=== PATIENT | female | born 1975 | race Caucasian/White ===

== ENCOUNTER → 2016-10-15 | Outpatient (CLI) | payer OTHER ==
[~2016-10-15] MED LIST: ALPR1TAB PO; DESV100T PO; DEXA4TAB PO; DIVA250T4 PO; FAMO-79 PO; METH5TAB2 PO; NORT25CA PO; ONDA8TAB9 PO; OXYC-302 PO; PREG50CA PO; VILA10TA PO; [UNRECOGNIZED DRUG - OTHER] IV
== END | disposition home or self-care (01) ==
LOC: CFH 12:35
PROVIDERS: ATTEND Internal Medicine Hematology & Oncology
DX: C50.912 Malignant neoplasm of unspecified site of left female breast (principal)
CPT/HCPCS: G0204

== ENCOUNTER 2018-04-16 14:47 | Emergency (ER) | payer OTHER ==
[~2018-04-16] VITALS: Ht 160 cm; Wt 58.9 kg
[2018-04-16 15:01] VITALS: BP 125/85
[2018-04-16 15:40] LABS: BASOPHILS # (AUTO) 0.05 x10^3/uL (0-0.1); BASOPHILS % (AUTO) 1 % (0-1); EOSINOPHILS # (AUTO) 0.08 x10^3/uL (0-0.4); EOSINOPHILS % (AUTO) 1 % (1-7); LYMPHOCYTES # (AUTO) 2.65 x10^3/uL (1-3.4); LYMPHOCYTES % (AUTO) 31 % (22-44); MD NO; MEAN CORPUSCULAR HEMOGLOBIN 32.6 pg (27.0-34.8); MEAN CORPUSCULAR HGB CONC 33.7 g/dL (32.4-35.8); MEAN CORPUSCULAR VOLUME 96.8 fL (80-100); MEAN PLATELET VOLUME 8.7 fL (7.4-10.4); MONOCYTES # (AUTO) 0.28 x10^3/uL (0.2-0.8); MONOCYTES % (AUTO) 3 % (2-9); NEUTROPHILS % (AUTO) 64 % (42-75); PLATELET COUNT 206 x10^3/uL (130-400); RED BLOOD COUNT 4.95 x10^6/uL (3.82-5.3); RED CELL DISTRIBUTION WIDTH 12.6 % (9.6-15.2)
[2018-04-16 15:54] LABS: ALBUMIN 3.8 g/dL (3.4-5.0); ANION GAP 6 mmol/L (5-15); CALCIUM 8.6 mg/dL (8.5-10.1); CHLORIDE 106 mmol/L (98-107)
[2018-04-16 15:58] LABS: ALANINE AMINOTRANSFERASE 50 U/L (12-78); ALKALINE PHOSPHATASE 72 U/L (45-117); BILIRUBIN,TOTAL 0.3 mg/dL (0.2-1.0); TOTAL PROTEIN 7.4 g/dL (6.4-8.2)
[2018-04-16] MEDS ORDERED: MAALOX/HYOSCYAMINE/LIDOCAINE 45 ML BTL ONE (17:10)
[2018-04-16 17:13] LABS: CULTURE INDICATED? YES; MICROSCOPIC INDICATED
[2018-04-16] MEDS ORDERED: MAALOX/HYOSCYAMINE/LIDOCAINE 45 ML BTL PO ONE (17:30)
== END 2018-04-16 17:54 | disposition left against medical advice (07) ==
LOC: ED 17:48
DX: K80.20 Calculus of gallbladder without cholecystitis without obstruction (principal); F32.9 Major depressive disorder, single episode, unspecified; Z85.3 Personal history of malignant neoplasm of breast
CPT/HCPCS: 36415; 76700; 80053; 81001; 83690; 85025; 87077; 87086; 87186; 99285

== ENCOUNTER 2021-02-10 13:18 | Inpatient (IN) | payer OTHER ==
[~2021-02-10] VITALS: Ht 162.6 cm; Wt 75.0 kg
[~2021-02-10 13:18] MED LIST changes: -NORT25CA PO; +NORT25CA78 PO; -OXYC-302 PO; +OXYC1TAB14 PO
[2021-02-10 14:31] LABS: BASOPHILS % (AUTO) 1 % (0-1); EOSINOPHILS % (AUTO) 4 % (1-7); LYMPHOCYTES % (AUTO) 22 % (22-44); MEAN CORPUSCULAR HEMOGLOBIN 32.1 pg (27.0-34.8); MEAN PLATELET VOLUME 8.9 fL (7.4-10.4); MONOCYTES % (AUTO) 9 % (2-9); NEUTROPHILS % (AUTO) 63 % (42-75); PLATELET COUNT 177 x10^3/uL (130-400); RED BLOOD COUNT 4.43 x10^6/uL (3.82-5.3); RED CELL DISTRIBUTION WIDTH 12.8 % (9.6-15.2)
[2021-02-10 14:42] LABS: ALBUMIN 3.3 g/dL (3.4-5.0); ANION GAP 8 mmol/L (5-15); CALCIUM 9.2 mg/dL (8.5-10.1); CHLORIDE 103 mmol/L (98-107)
[2021-02-10 14:48] LABS: ALANINE AMINOTRANSFERASE 298 U/L (12-78); ALKALINE PHOSPHATASE 505 U/L (45-117); BILIRUBIN,TOTAL 1.1 mg/dL (0.2-1.0); CREATININE 0.83 mg/dL (0.55-1.02); TOTAL PROTEIN 7.2 g/dL (6.4-8.2)
--- NOTE | 2021-02-10 17:21 | NUR ---
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
--- NOTE | 2021-02-10 17:40 | NUR ---
RIGHT UPPER ABD PAIN RADIATING TO BACK x 3 days no etoh use, still has gallbladder
[2021-02-10] MEDS ORDERED: SODIUM CHLORIDE 0.9% 1,000 ML IV ONE (18:00)
[2021-02-10] MEDS ORDERED: MORPHINE SULFATE 4 MG/ML, 1ML IVPush PRN (18:00)
[2021-02-10] MEDS ORDERED: SODIUM CHLORIDE FLUSH 10ML SYR IVF ONE (18:00)
[2021-02-10] MEDS ORDERED: ONDANSETRON 2MG/ML, 2ML IVPush ONE (18:00)
--- NOTE | 2021-02-10 18:50 | NUR ---
RECIEVED REPORT FROM SERGIO COLBERT
[2021-02-10] MEDS ORDERED: MORPHINE SULFATE 4 MG/ML, 1ML ONE (18:55)
[2021-02-10] MEDS ORDERED: ONDANSETRON 2MG/ML, 2ML ONE (18:55)
--- NOTE | 2021-02-10 19:00 | NUR ---
report to cristine melchor
[2021-02-10] MEDS ORDERED: MELATONIN 5 MG TABLET PO PRN (19:30)
[2021-02-10] MEDS ORDERED: ONDANSETRON 2MG/ML, 2ML IVPush PRN (19:30)
[2021-02-10] MEDS ORDERED: HYDROmorphone 2 MG/ML, 1ML IVPush PRN (19:30)
[2021-02-10] MEDS ORDERED: ACETAMINOPHEN 325 MG TABLET PO PRN (19:30)
[2021-02-10] MEDS ORDERED: LABETALOL 5MG/ML, 20ML IVPush PRN (19:30)
[2021-02-10] MEDS ORDERED: POLYETHYLENE GLYCOL 17 GM PACKET PO PRN (19:30)
--- NOTE | 2021-02-10 20:00 | NUR ---
Task RN: IV established. Medicated patient per mar. Patient to MRI. Primary RN aware.
--- NOTE | 2021-02-10 20:45 | NUR ---
Pt to be admitted to medical, room 375. Report called to will.
[2021-02-10 21:16] VITALS: BP 106/69
[2021-02-10] MEDS: FAMOTIDINE 20 MG/2 ML IVPush SCH (22:04)
[2021-02-10] MEDS: KETOROLAC 30 MG/1 ML IV PRN (22:12)
[2021-02-11 00:40] VITALS: BP 105/69
[2021-02-11 05:13] LABS: MICROSCOPIC INDICATED
[2021-02-11 05:50] LABS: BASOPHILS % (AUTO) 1 % (0-1); EOSINOPHILS % (AUTO) 5 % (1-7); LYMPHOCYTES % (AUTO) 18 % (22-44); MEAN CORPUSCULAR HEMOGLOBIN 32.6 pg (27.0-34.8); MEAN CORPUSCULAR HGB CONC 34.5 g/dL (32.4-35.8); MEAN PLATELET VOLUME 8.8 fL (7.4-10.4); MONOCYTES % (AUTO) 10 % (2-9); NEUTROPHILS % (AUTO) 66 % (42-75); PLATELET COUNT 160 x10^3/uL (130-400); RED BLOOD COUNT 4.42 x10^6/uL (3.82-5.3); RED CELL DISTRIBUTION WIDTH 13.2 % (9.6-15.2)
[2021-02-11 06:08] LABS: ALBUMIN 2.7 g/dL (3.4-5.0); ANION GAP 5 mmol/L (5-15); CALCIUM 8.9 mg/dL (8.5-10.1); CHLORIDE 105 mmol/L (98-107)
[2021-02-11 06:11] LABS: ALANINE AMINOTRANSFERASE 240 U/L (12-78); ALKALINE PHOSPHATASE 462 U/L (45-117); BILIRUBIN,TOTAL 1.2 mg/dL (0.2-1.0); CREATININE 0.73 mg/dL (0.55-1.02); TOTAL PROTEIN 6.6 g/dL (6.4-8.2)
[2021-02-11 06:59] VITALS: BP 110/74
[2021-02-11] MEDS: FAMOTIDINE 20 MG/2 ML IVPush SCH ×2 (07:27→20:47)
[2021-02-11] MEDS: KETOROLAC 30 MG/1 ML IV PRN (07:27)
[2021-02-11] MEDS: LACTATED RINGERS 1,000 ML IV SCH ×2 (12:06→20:56)
[2021-02-11 14:38] VITALS: BP 104/68
[2021-02-11 20:34] VITALS: BP 93/57
[2021-02-12 00:03] VITALS: BP 112/73
[2021-02-12] MEDS: LACTATED RINGERS 1,000 ML IV SCH ×3 (05:20→23:40)
[2021-02-12 06:33] LABS: BASOPHILS % (AUTO) 0 % (0-1); EOSINOPHILS % (AUTO) 6 % (1-7); LYMPHOCYTES % (AUTO) 28 % (22-44); MEAN CORPUSCULAR HEMOGLOBIN 32.3 pg (27.0-34.8); MEAN CORPUSCULAR HGB CONC 34.1 g/dL (32.4-35.8); MEAN PLATELET VOLUME 9.1 fL (7.4-10.4); MONOCYTES % (AUTO) 11 % (2-9); NEUTROPHILS % (AUTO) 55 % (42-75); PLATELET COUNT 170 x10^3/uL (130-400); RED BLOOD COUNT 4.37 x10^6/uL (3.82-5.3)
[2021-02-12 06:36] LABS: INTERNATIONAL NORMALIZED RATIO 1.02 (0.93-1.1); PROTHROMBIN TIME 10.9 Seconds (9.6-11.5)
[2021-02-12 06:38] LABS: ALBUMIN 2.6 g/dL (3.4-5.0); ANION GAP 6 mmol/L (5-15); CALCIUM 8.7 mg/dL (8.5-10.1); CHLORIDE 108 mmol/L (98-107)
[2021-02-12 06:43] LABS: ALANINE AMINOTRANSFERASE 168 U/L (12-78); ALKALINE PHOSPHATASE 476 U/L (45-117); CREATININE 0.66 mg/dL (0.55-1.02); TOTAL PROTEIN 6.1 g/dL (6.4-8.2)
[2021-02-12] MEDS: FAMOTIDINE 20 MG/2 ML IVPush SCH ×2 (08:31→22:16)
[2021-02-12 08:55] VITALS: BP 121/77
[2021-02-12] MEDS ORDERED: OMNIPAQUE 350 MG/ML, 50 ML BOTTLE ONE ×2 (09:42→10:45)
[2021-02-12] MEDS ORDERED: MIDAZOLAM 1 MG/ML, 2ML ONE (10:30)
[2021-02-12] MEDS ORDERED: FENTANYL PF 100 MCG/2ML ONE ×2 (10:45→18:54)
[2021-02-12] MEDS ORDERED: OXYcodone 5 MG/5 ML ORAL.SOL UDC PO PRN ×3 (11:00→19:00)
[2021-02-12] MEDS ORDERED: HYDROcodone/APAP 7.5-325MG/15ML UDC PO PRN (11:00)
[2021-02-12] MEDS ORDERED: HYDROmorphone 1 MG/ML, 1ML INJ IVPush PRN (11:00)
[2021-02-12] MEDS ORDERED: MEPERIDINE/PF 25MG/0.5ML IVPush PRN ×3 (11:00→19:00)
[2021-02-12] MEDS ORDERED: ONDANSETRON 2MG/ML, 2ML IVPush PRN ×2 (11:00→20:30)
[2021-02-12] MEDS ORDERED: KETOROLAC 30 MG/1 ML IVPush PRN (11:00)
[2021-02-12] MEDS ORDERED: PROMETHAZINE 25 MG/ML, 1ML IVPush PRN (11:00)
[2021-02-12] MEDS ORDERED: FENTANYL PF 100 MCG/2ML IV PRN ×3 (11:00→19:00)
[2021-02-12] MEDS ORDERED: INDOMETHACIN 50 MG SUPP.RECT PR STA (11:26)
[2021-02-12] MEDS ORDERED: CIPROFLOXACIN LACTATE 200 MG in DEXTROSE 5% 100 ML IV STA (11:27)
[2021-02-12] MEDS ORDERED: INDOMETHACIN 50 MG SUPP.RECT ONE (11:38)
[2021-02-12] MEDS ORDERED: CIPROFLOXACIN/DEXT 200MG PMX 100 ML IVPB ONE (12:00)
[2021-02-12] MEDS ORDERED: LACTATED RINGERS 1,000 ML IVBOLUS ONE (12:30)
[2021-02-12 13:04] VITALS: BP 125/86
[2021-02-12] MEDS: KETOROLAC 30 MG/1 ML IV PRN ×2 (15:45→22:17)
[2021-02-12] MEDS ORDERED: FENTANYL PF 250 MCG/5ML ONE (17:49)
[2021-02-12] MEDS ORDERED: HYDROmorphone 2 MG/ML, 1ML IVPush PRN ×2 (18:00→19:00)
[2021-02-12] MEDS ORDERED: ACETAMINOPHEN 325 MG TABLET PO PRN ×2 (18:00→19:00)
[2021-02-12] MEDS ORDERED: ALBUTEROL SULFATE 2.5 MG/3 ML NPPB PRN ×2 (18:00→19:00)
[2021-02-12] MEDS ORDERED: PROMETHAZINE 25 MG/ML, 1ML IV PRN ×2 (18:00→19:00)
[2021-02-12] MEDS ORDERED: LABETALOL 5MG/ML, 20ML IV PRN ×2 (18:00→19:00)
[2021-02-12] MEDS ORDERED: DIAZEPAM 5 MG/ML, 2ML IVPush PRN ×2 (18:00→19:00)
[2021-02-12] MEDS ORDERED: hydrALAzine 20 MG/ML, 1ML IV PRN ×2 (18:00→19:00)
[2021-02-12] MEDS ORDERED: KETOROLAC 30 MG/1 ML IV PRN (18:00)
[2021-02-12] MEDS ORDERED: BUPIVACAINE/PF-EPI 0.5% 1:200K INFIL ONE (18:13)
[2021-02-12] MEDS ORDERED: ROCURONIUM 10MG/ML,5ML ONE (18:38)
[2021-02-12] MEDS ORDERED: GLYCOPYRROLATE 0.2MG/1ML, 5ML ONE (18:38)
[2021-02-12] MEDS ORDERED: PROPOFOL 10 MG/ML, 20ML ONE (18:38)
[2021-02-12] MEDS ORDERED: ONDANSETRON 2MG/ML, 2ML ONE (18:38)
[2021-02-12] MEDS ORDERED: CEFAZOLIN 1,000 MG ONE (18:38)
[2021-02-12] MEDS ORDERED: SUCCINYLCHOLINE 20 MG/ML, 10ML ONE (18:38)
[2021-02-12] MEDS ORDERED: NEOSTIGMINE 1 MG/ML, 10ML ONE (18:38)
[2021-02-12] MEDS ORDERED: ACETAMINOPHEN 650 MG/20.3 ML UDC ONE (18:54)
[2021-02-12] MEDS ORDERED: OXYcodone 5 MG/5 ML ORAL.SOL UDC ONE (18:55)
[2021-02-12 19:40] VITALS: BP 112/56
[2021-02-12 19:49] VITALS: BP 112/56
[2021-02-12] MEDS ORDERED: OXYcodone/APAP 5/325MG TABLET PO PRN (20:30)
[2021-02-13 00:46] VITALS: BP 100/67
[2021-02-13 04:27] VITALS: BP 98/59
[2021-02-13 05:21] LABS: BASOPHILS % (AUTO) 1 % (0-1); EOSINOPHILS % (AUTO) 0 % (1-7); LYMPHOCYTES % (AUTO) 20 % (22-44); MEAN CORPUSCULAR HEMOGLOBIN 32.2 pg (27.0-34.8); MEAN CORPUSCULAR HGB CONC 34.1 g/dL (32.4-35.8); MEAN PLATELET VOLUME 9.3 fL (7.4-10.4); MONOCYTES % (AUTO) 7 % (2-9); NEUTROPHILS % (AUTO) 73 % (42-75); PLATELET COUNT 157 x10^3/uL (130-400); RED BLOOD COUNT 4.04 x10^6/uL (3.82-5.3); RED CELL DISTRIBUTION WIDTH 12.9 % (9.6-15.2)
[2021-02-13 05:34] LABS: CHLORIDE 104 mmol/L (98-107)
[2021-02-13 05:41] LABS: ALANINE AMINOTRANSFERASE 138 U/L (12-78); ALBUMIN 2.3 g/dL (3.4-5.0); ALKALINE PHOSPHATASE 405 U/L (45-117); ANION GAP 7 mmol/L (5-15); BILIRUBIN,TOTAL 0.7 mg/dL (0.2-1.0); CALCIUM 8.2 mg/dL (8.5-10.1); CREATININE 0.74 mg/dL (0.55-1.02); TOTAL PROTEIN 5.9 g/dL (6.4-8.2)
[2021-02-13] MEDS: LACTATED RINGERS 1,000 ML IV SCH (06:10)
[2021-02-13 07:44] VITALS: BP 90/60
[2021-02-13] MEDS: FAMOTIDINE 20 MG/2 ML IVPush SCH (07:47)
[2021-02-14] MEDS ORDERED: GLUCAGON 1 MG ONE (09:51)
== END 2021-02-13 10:20 | disposition home or self-care (01) | DRG 419 ==
LOC: ED 21:14 → EDIP 21:15 → 3N 21:24 → 4NE 02-12 19:36
PROVIDERS: ADMIT Internal Medicine; ATTEND Family Medicine
PROC: BF121ZZ Fluoroscopy of Gallbladder using Low Osmolar Contrast (ICD-10-PCS; 2021-02-12)
PROC: 0F798ZZ Dilation of Common Bile Duct, Via Natural or Artificial Opening Endoscopic (ICD-10-PCS; 2021-02-12)
PROC: BF131ZZ Fluoroscopy of Gallbladder and Bile Ducts using Low Osmolar Contrast (ICD-10-PCS; 2021-02-12)
PROC: 0FT44ZZ Resection of Gallbladder, Percutaneous Endoscopic Approach (ICD-10-PCS; principal; 2021-02-12 08:00)
DX: K80.62 Calculus of gallbladder and bile duct with acute cholecystitis without obstruction (principal); Z20.822 Contact with and (suspected) exposure to COVID-19; F17.210 Nicotine dependence, cigarettes, uncomplicated; F19.10 Other psychoactive substance abuse, uncomplicated; G62.0 Drug-induced polyneuropathy; I89.0 Lymphedema, not elsewhere classified; R73.03 Prediabetes; T45.1X5A Adverse effect of antineoplastic and immunosuppressive drugs, initial encounter; F32.9 Major depressive disorder, single episode, unspecified; G89.29 Other chronic pain; K59.00 Constipation, unspecified; R74.01 Elevation of levels of liver transaminase levels; R94.5 Abnormal results of liver function studies; Y92.89 Other specified places as the place of occurrence of the external cause; Z80.0 Family history of malignant neoplasm of digestive organs; Z80.1 Family history of malignant neoplasm of trachea, bronchus and lung; Z80.7 Family history of other malignant neoplasms of lymphoid, hematopoietic and related tissues; Z85.3 Personal history of malignant neoplasm of breast; Z90.10 Acquired absence of unspecified breast and nipple; Z92.3 Personal history of irradiation; Z79.899 Other long term (current) drug therapy
CPT/HCPCS: 36415; 74181; 74328; 76700; 80053; 80074; 81001; 83690; 83735; 84703; 85025; 85610; 86301; 87086; 87635; 88304; 96374; 96375; 99285; C1729; G0378; J0690; J1885; J2250; J2405; J2704; J2710; J3010; Q9967; C1769; J0330; J0744; J1610; J2270; J7120